=== PATIENT | female | born 1995 | race Caucasian/White ===

== ENCOUNTER 2022-06-04 14:34 | Emergency (ER) | payer OTHER, SELFPAY ==
--- OUTSIDE RECORDS SUMMARY | 2022-06-04 14:38 | XMS REPORT | Continuity of Care Document ---
:1995 Author Organization [facility] t Address [address] [place] [address] Dr. [address]. [address] [place] [address] Care Team Providers Name Role Phone ADELE PETERSON Primary Care Physician Unavailable ADELE PETERSON Attending Clinician Unavailable NAHUN BRAND Attending Clinician Unavailable DANNY STORY Attending Clinician Unavailable Danny Story MD Attending Clinician [facility] [phone] Rita Mao Attending Clinician Doctor Unassigned, [place] Attending Clinician Unavailable Jen Monterroso MD Attending Clinician KIRSTIE IRENE M.D. Attending Clinician Unavailable PETR ISLAS M.D. Attending Clinician Unavailable Payers Payer Name Policy Type Policy Number Effective Date Expiration Date [facility] [id number] 2018 CHOICE 00:00:00 [facility] [id number] 2021 00:00:00 Problems Condition Condition Condition Status Onset Resolution Last Treating Co mments Source Name Details Category Date Date Treatment Clinician Date Cyst of Cyst of Disease Active 2021-06 Univers Bartholin' Bartholin' 2-05 it y of s gland s gland 00:00: [address] Sebaceous Sebaceous Disease Active Uni vers cyst of cyst of 4-13 ity of labia labia 00:00: [address] Family Family Disease Active Univers history of history of 4-13 it y of breast breast 00:00: [place] cancer cancer 00 Medical Branch Tobacco Tobacco Disease Active Univers abuse abuse 9-09 ity of 00:00: [place] [facility] Appendicit Appendicit Disease Active U yunior is is 6-21 ity of 00:00: [place] [facility] Vaginal Vaginal Disease Active 2016-06 Univers yeast yeast 1-15 [place] infection [place] Rectal Rectal Disease Active 2016-06 Univers bleeding bleeding 1-15 ity of 00:00: [place] [facility] Contracept Contracept Disease Active 2016-06 U yunior cortes cortes 0-06 ity of management [place] [facility] [place] Obesity Obesity Disease Active 2016-06 Univers (BMI (BMI 0-06 ity of 30-39.9) 30-39.9) 00:00: [place] [facility] Vaginal Vaginal Disease Active 2016-06 Univers discharge discharge 0-06 ity of 00:00: [place] [facility] Migraine Migraine Disease Active 2016-06 Unive rs without without 0-06 ity of aura aura 00:00: [place] [facility] Avulsion Avulsion Problem Active [facility] fracture fracture Physic i ans Osteochond Osteochond Problem Active U T ral defect ral defect Ph ysici of [place] Sprain of Sprain of Problem Active [facility] anterior anterior Physic i talofibula talofibula an s r ligament r ligament of left of left ankle, ankle, initial initial encounter encounter Allergies, Adverse Reactions, Alerts Allergy Allergy Status Severity Reaction(s) Onset Inactive Treating Comm ents Source Name Type Date Date Clinician Iodine Propensi Active Other - See Uni vers ty to comments 6-21 ity of adverse 00:00: [place] reaction 00 Medical s Branch IODINE DRUG Active Other-Cmnt Univer s INGREDI 6-21 ity of 00:00: [place] 00 Medical Branch Social History Social Habit Start Date Stop Date Quantity Comments Source History SDOH University o f Alcohol Frequency [place] M ed[facility] History SDOH University o f Alcohol Std [place] Medical Drinks Branch History SDOH University o f Alcohol Binge [place] [facility] al [facility] Exposure to 2022-05-21 2022-05-31 Not sure University of SARS-CoV-2 00:00:00 14:07:00 [place] [facility] (event) Branch Tobacco use and 2022-05-30 2022-05-30 User of smokeless Un iversity of exposure 00:00:00 00:00:00 tobacco [facility] Alcohol intake 2022-05-30 2022-05-30 Current drinker Unive rsity of 00:00:00 00:00:00 of alcohol [facility] (finding) [place] Tobacco Comment 2022-05-30 2022-05-30 smokes when she Univ ersity of 00:00:00 00:00:00 drinks [facility] Alcohol Comment 2018-03-14 2018-03-14 every other Universi ty of 00:00:00 00:00:00 weekend [facility] Sex [birth year] At [birth year] Universit y of 00:00:00 00:00:00 [facility] Smoking Status Start Date Stop Date Source Never smoked tobacco [facility] Medications Ordered Filled Start Stop Current Ordering Indication Dosage Frequency Signature Comments Components Source Medication Medication Date Date Medication? Clinician (SIG) Name Name No known 2021-06 No No known Unive rs medications 2-05 medication it y of 08:05: s [address] sulfamethox 2021-06- Yes [id number] 1{tbl} Take 1 Univers azole-trime 2-05 12-13 tablet by it y of thoprim 00:00: 05:59 mouth in [place] (BACTRIM 00 :00 the Medical DS) 800-160 morning Branc h mg per and 1 tablet tablet in the evening. Do all this for 7 days. sulfamethox 2021-06- Yes [id number] 1{tbl} Take 1 Univers azole-trime 2-05 12-13 tablet by it y of thoprim 00:00: 05:59 mouth in [place] (BACTRIM 00 :00 the Medical DS) 800-160 morning Branc h mg per and 1 tablet tablet in the evening. Do all this for 7 days. sulfamethox 2021-06- Yes [id number] 1{tbl} Take 1 Univers azole-trime 2-05 12-13 tablet by it y of thoprim 00:00: 05:59 mouth in [place] (BACTRIM 00 :00 the Medical DS) 800-160 morning Branc h mg per and 1 tablet tablet in the evening. Do all this for 7 days. sulfamethox 2021-06- Yes [id number] 1{tbl} Take 1 Univers azole-trime 2- 12-13 tablet by it y of thoprim 00:00: 05:59 mouth in [place] (BACTRIM 00 :00 the Medical DS) 800-160 morning Branc h mg per and 1 tablet tablet in the evening. Do all this for 7 days. ondansetron 2021- No [id number] 4mg Take 1 Univers (ZOFRAN 4-23 04-13 tablet by ity of ODT) 4 mg 00:00: 00:00 mouth [place] disintegrat 00 :00 every 8 Medic al ing tablet (eight) Branch hours as needed for Nausea and Vomiting (N/V). ondansetron 2021- No [id number] 4mg Take 1 Univers (ZOFRAN 4-23 04-13 tablet by ity of ODT) 4 mg 00:00: 00:00 mouth [place] disintegrat 00 :00 every 8 Medic al ing tablet (eight) Branch hours as needed for Nausea and Vomiting (N/V). traMADoL 2021- No [id number] 50mg Take 1 Univer s (ULTRAM) 50 8- 04-13 tablet by it y of mg tablet 00:00: 00:00 mouth [place] 00 :00 every 6 Medical (six) Branch hours as needed for Pain (scale 7-10). Indication s: acute pain ciprofloxac 2021- No [id number] 500mg Take 1 Univers in HCl 500 8- 04-13 tablet by ity of mg tablet 00:00: 00:00 mouth [place] :[place] (two) Medical times Branch daily. traMADoL 2021- No [id number] 50mg Take 1 Univer s (ULTRAM) 50 8-29 04-13 tablet by it y of mg tablet 00:00: 00:00 mouth [place] 00 :00 every 6 Medical (six) Branch hours as needed for Pain (scale 7-10). Indication s: acute pain ciprofloxac 2021- No [id number] 500mg Take 1 Univers in HCl 500 8-29 04-13 tablet by ity of mg tablet 00:00: 00:00 mouth [place] :[place] (two) Medical times Branch daily. Immunizations Ordered Filled Immunization Date Status Comments [facility] e Immunization Name Name HPV 2016-08-01 Completed University of 00:00:00 [place] [facility] HPV 2016-08-01 Completed University of 00:00:00 [place] [facility] HPV 2016-08-01 Completed University of 00:00:00 [place] [facility] HPV 2016-08-01 Completed University of 00:00:00 [place] [facility] HPV 2016-08-01 Completed University of 00:00:00 [place] [facility] HPV 2016-08-01 Completed University of 00:00:00 [place] [facility] HPV 2016-08-01 Completed University of 00:00:00 [place] [facility] HPV 2016-03-31 Completed University of 00:00:00 [place] [facility] HPV 2016-03-31 Completed University of 00:00:00 [place] [facility] HPV 2016-03-31 Completed University of 00:00:00 [place] [facility] HPV 2016-03-31 Completed University of 00:00:00 [place] [facility] HPV 2016-03-31 Completed University of 00:00:00 [place] [facility] HPV 2016-03-31 Completed University of 00:00:00 [place] [facility] HPV 2016-03-31 Completed University of 00:00:00 [place] [facility] HPV 2016-01-30 Completed University of 00:00:00 [place] [facility] HPV 2016-01-30 Completed University of 00:00:00 [place] [facility] HPV 2016-01-30 Completed University of 00:00:00 [place] [facility] HPV 2016-01-30 Completed University of 00:00:00 [place] [facility] HPV 2016-01-30 Completed University of 00:00:00 [place] [facility] HPV 2016-01-30 Completed University of 00:00:00 [place] [facility] HPV 2016-01-30 Completed University of 00:00:00 [facility] Branch TDAP (ADACEL) 2015-12-30 Completed University of VACCINE 00:00:00 [facility] Branch TDAP (ADACEL) 2015-12-30 Completed University of VACCINE 00:00:00 [facility] Branch TDAP (ADACEL) 2015-12-30 Completed University of VACCINE 00:00:00 [facility] Branch TDAP (ADACEL) 2015-12-30 Completed University of VACCINE 00:00:00 [facility] Branch TDAP (ADACEL) 2015-12-30 Completed University of VACCINE 00:00:00 [facility] TDAP (ADACEL) 2015-12-30 Completed University of VACCINE 00:00:00 [facility] TDAP (ADACEL) 2015-12-30 Completed [facility] VACCINE 00:00:00 [facility] Vital Signs Vital Name Observation Time Observation Value Comments Source Systolic blood 2022-05-31 23:00:00 107 mm[Hg] Univer sity of pressure [facility] Diastolic blood 2022-05-31 23:00:00 71 mm[Hg] Unive rsity of pressure [facility] Heart rate 2022-05-31 23:00:00 76 /min Universi ty of [facility] Respiratory rate 2022-05-31 23:00:00 16 /min [facility] O[facility] saturation in 2022-05-31 23:00:00 100 /min [facility] Arterial blood by [facility] Pulse oximetry Branch Body temperature 2022-05-31 20:08:00 37.22 [facility] ersity of [facility] Body height 2022-05-31 20:08:00 175.3 cm Universi ty of [facility] Body weight 2022-05-31 20:08:00 104.327 kg Universi ty of [facility] BMI 2022-05-31 20:08:00 33.97 kg/m2 Universi ty of [facility] Systolic blood 2022-05-30 19:22:00 113 mm[Hg] Univer sity of pressure [facility] Diastolic blood 2022-05-30 19:22:00 76 mm[Hg] Unive rsity of [facility] Heart rate 2022-05-30 19:22:00 88 /min Universi ty of [facility] Body temperature 2022-05-30 19:22:00 37.06 Kavya Univ ersity of [facility] Respiratory rate 2022-05-30 19:22:00 18 /min Univ ersity of [facility] Body height 2022-05-30 19:22:00 175.3 cm Universi ty of [facility] Body weight 2022-05-30 19:22:00 104.554 kg Universi ty of [place] Medical [place] BMI 2022-05-30 19:22:00 34.04 kg/m2 Universi ty of [facility] Systolic blood 2022-05-30 13:21:00 118 mm[Hg] Univer sity of pressure [facility] Diastolic blood 2022-05-30 13:21:00 83 mm[Hg] Unive rsity of pressure [facility] Heart rate 2022-05-30 13:21:00 84 /min Universi ty of [facility] Body temperature 2022-05-30 13:21:00 36.61 Kavya Univ ersity of [facility] Respiratory rate 2022-05-30 13:21:00 18 /min Univ ersity of [facility] Body height 2022-05-30 13:21:00 175.3 cm Universi ty of [facility] Body weight 2022-05-30 13:21:00 105.235 kg Universi ty of [facility] BMI 2022-05-30 13:21:00 34.26 kg/m2 Universi ty of [facility] Oxygen saturation in 2022-05-30 13:21:00 99 /min [facility] Arterial blood by [facility] Pulse oximetry Branch Systolic blood 2021-10-06 19:20:00 122 mm[Hg] Univer sity of [facility] Diastolic blood 2021-10-06 19:20:00 72 mm[Hg] Unive rsity of [facility] Heart rate 2021-10-06 19:20:00 90 /min Universi ty of [facility] Body temperature 2021-10-06 19:20:00 36.39 [facility] Respiratory rate 2021-10-06 19:20:00 16 /min [facility] Body height 2021-10-06 19:20:00 175.3 cm Universi ty of [facility] Body weight 2021-10-06 19:20:00 105.716 kg Universi ty of [facility] BMI 2021-10-06 19:20:00 34.42 kg/m2 [facility] Procedures Procedure Date / Time Performing Clinician Source Performed POCT TEST 2022-05-31 21:59:00 Danny Story [facility] BASIC METABOLIC PANEL 2022-05-31 21:49:00 Danny Story [facility] (NA, K, CL, CO2, Medical Branch GLUCOSE, BUN, CREATININE, CA) CBC WITH DIFF 2022-05-31 21:49:00 Danny Story United o f [facility] CONSENT/REFUSAL FOR 2022-05-31 20:00:04 Doctor Unassigned, No Un iversity of [place] DIAGNOSIS AND TREATMENT Name Medical [place] NOTICE OF PRIVACY 2022-05-30 13:07:48 Doctor Unassigned, No [facility] [place] PRACTICES Name [facility] Branch CONSENT/REFUSAL FOR 2022-05-30 13:01:33 Doctor Unassigned, No Un iversity of [place] DIAGNOSIS AND TREATMENT Name [facility] GC & CHLAMYDIA 2021-10-06 21:29:00 Adele Peterson Univers ity [facility] AMPLIFIED ASSAY [facility] TRICHOMONAS AMPLIFIED 2021-10-06 21:29:00 Adele Peterson [facility] ASSAY [facility] PAP SMEAR-LIQUID 2021-10-06 21:29:00 Adele Peterson [facility] HIV 1/2 AG-AB WITH 2021-10-06 20:30:00 [facility] REFLEX [facility] GALV ONLY - [place] 2021-10-06 20:30:00 Adele Peterson Un [facility] IGG/IGM [facility] [U] XRAY FOOT MIN 3 VWS 2019-01-08 00:00:00 [facility]ys[facility] LEFT [id number] [U] XRAY ANKLE MIN 3 2019-01-03 00:00:00 [facility] VWS LEFT [id number] MR Ankle wo contrast 2019-01-03 00:00:00 [facility] [id number] Encounters Start End Encounter Admission Attending Care Care Encounter Source Date/Time Date/Time Type Type Clinicians Facility Department ID 2021-04-25 Emergency [facility] [id number] [facility] 2021-04-23 Emergency [facility] [id number] Univers 14:47:41 [facility] 2022-10-06 2022-10-06 Outpatient R NICHOLAS [facility] [id number] Univers 13:30:00 13:30:00 ADELE lyons o yesenia [facility] 2022-06-06 2022-06-06 Outpatient R CATHIE [facility] [id number] Univers 09:45:00 09:45:00 NAHUN ity [facility] 2022-05-31 2022-05-31 Emergency X PORSHA, [facility] ERT [id number] Univers 14:10:00 17:27:00 DANNY ity [facility] 2022-05-31 2022-05-31 Emergency Porsha, [facility] [id number] Univers 14:10:00 17:27:00 Danny ROBERTS [id number] i ty of [place] 4.2.7.2.686 [facility] [id number] [address] 2022-05-31 2022-05-31 [facility]phone [facility] [id number] Univers 00:00:00 00:00:00 Adele C SENIOR DIRECTOR [id number] ity of [facility] 4.2.7.2.686 Piero as MATERNAL [id number] [facility] ical & CHILD [address] [place] [address] 2022-05-30 2022-05-30 Office [facility] [id number] Univers 14:30:00 14:30:00 Visit Adele Enrique SENIOR DIRECTOR [id number] ity of [facility] 4.2.7.2.686 Piero as MATERNAL [id number] [facility] & [address] 2022-05-30 2022-05-30 Outpatient R NICHOLAS [facility] ERT [id number] Univers 14:30:00 14:05:58 ADELE flanagany o f [facility] 2022-05-30 2022-05-30 Emergency Anabela, K [facility] [id number] Univers 07:22:00 10:57:00 Samantha ROBERTS [id number] i ty of [place] 4.2.7.2.686 [facility] [id number] [address] 2021-10-06 2021-10-[address] [facility] [id number] Univers 14:00:00 15:19:01 Visit Adele C SENIOR DIRECTOR [id number] ity of [facility] 4.2.7.2.686 Piero as MATERNAL [id number] Med ical & CHILD [address] [place] [address] 2021-10-06 2021-10-06 Outpatient R NICHOLAS, [facility] [id number] Univers 14:00:00 15:19:01 ADELE patterson [facility] 2021-10-06 2021-10-06 Outpatient R [facility] [id number] Univers 14:00:00 14:00:00 ADELE flanagankaye stephan patterson [facility] 2021-10-06 2021-10-06 Orders Doctor ANIA [id number] Univers 00:00:00 00:00:00 Only Unassigned, ANNIE [id number] ity of [place] [facility] 4.2.7.2.686 Piero as [id number] [address] 2021-07-05 2021-07-05 Outpatient R [facility] [id number] Univers 15:00:00 15:00:00 ADELE flanagankaye stephan patterson [facility] 2020-10-16 2020-10-16 Emergency Rita Peñaloza [facility] [id number] Univers 16:28:00 18:37:00 Samantha F[place]ton [id number] i ty of [place] 4.2.7.2.686 [facility] [id number] [place] [id number] [place] 2020-10-16 2020-10-16 Orders Doctor JORGE [id number] Univers 00:00:00 00:00:00 Only Unassigned, ANNIE [id number] ity of [place] [facility] 4.2.7.2.686 Piero as [id number] [address] 2020-02-21 2020-02-22 Emergency [facility] [id number] Univers 22:18:00 01:45:00 Jen Roberts [id number] ity of [place] 4.2.7.2.686 [facility] [id number] [facility] 084 Branch 2020-02-21 2020-02-21 Orders Doctor ANIA [id number] Univers 00:00:00 00:00:00 Only Unassigned, ANNIE [id number] ity of [place] [facility] 4.2.7.2.686 Piero as [id number] [facility] 009 Branch 2019-01-16 2019-01-16 Appointmen TETO [facility] Orthopedics [id number] [place] 15:30:00 15:30:00 t; Diana THACKER [facility] yves IRENE M.D. [facility] Elidia THACKER 2019-01-08 2019-01-08 Appointmen STANISLAW ISLAS [facility] [id number] [place] 11:45:00 11:45:00 t; PETR ISLAS M.D. - Rah HUMPHREYS M.D. [facility] 2019-01-03 2019-01-03 Appointmen STANISLAW ISLAS [facility] [id number] [place] 13:15:00 13:15:00 t; PETR ISLAS M.D. - Tadanya HUMPHREYS M.D. [facility] Results Test Description Test Time Test Comments Results Result Comments Source CBC WITH DIFF 2022-05-31 22:12:28 Test Item Value Reference Range Interpretation Comme nts WBC (test code = 6690-2) See_Comment [A utomated message] The system which ge nerated this result transmit henrry reference range: 4.30 - 1 1.10 10*3/?L. The reference r bunny was not used to interpr et this result as normal/abnor mal. RBC (test code = 789-8) See_Comment [Au tomated message] The system which ge nerated this result transmit henrry reference range: 3.93 - 5 .25 10*6/?L. The reference r bunny was not used to interpr et this result as normal/abnor mal. HGB (test code = 718-7) 11.9 g/dL 11.6-15.0 HCT (test code = 4544-3) 35.9 % 35.7-45.2 MCV (test code = 787-2) 89.5 fL 80.6-95.5 MCH (test code = 785-6) 29.7 pg 25.9-32.8 MCHC (test code = 786-4) 33.1 g/dL 31.6-35.1 RDW-SD (test code = 32200-0) 38.0 fL 39.0-49.9 L RDW-CV (test code = 788-0) 11.8 % 12.0-15.5 L PLT (test code = 777-3) See_Comment [Au tomated message] The system which ge nerated this result transmit henrry reference range: 166 - 35 8 10*3/?L. The reference range was not used to interpret th is result as normal/abnormal . MPV (test code = 71571-3) 9.2 fL 9.5-12.9 L NRBC/100 WBC (test code = See_Comment [ Automated message] The [id number]) system which ge nerated this result transmit henrry reference range: 0.0 - 10 .0 /100 WBCs. The reference r bunny was not used to interpr et this result as normal/abnor mal. NRBC x10^3 (test code = See_Comment [Au tomated message] The [id number]) system which ge nerated this result transmit henrry reference range: 10*3/?L. The reference range was not u sed to interpret this result as normal/abnormal . GRAN MAT (NEUT) % (test code 70.0 % = 770-8) IMM GRAN % (test code = 0.30 % 6901550290) LYMPH % (test code = 736-9) 20.0 % MONO % (test code = 5905-5) 6.4 % EOS % (test code = 713-8) 2.4 % BASO % (test code = 706-2) 0.9 % GRAN MAT x10^3(ANC) (test 7.14 10*3/uL 1.88-7.09 H code = 3842296008) IMM GRAN x10^3 (test code = 0.03 10*3/uL 0.00-0.06 0836111802) LYMPH x10^3 (test code = 2.04 10*3/uL 1.32-3.29 731-0) MONO x10^3 (test code = 0.65 10*3/uL 0.33-0.92 742-7) EOS x10^3 (test code = 0.24 10*3/uL 0.03-0.39 711-2) BASO x10^3 (test code = 0.09 10*3/uL 0.01-0.07 H 704-7) Lab Interpretation (test Abnormal code = 34311-7) [facility] METABOLIC PANEL (NA, K, CL, CO2, GLUCOSE, BUN, CREATININE, CA)2022-05-31 22:11:11 Test Item Value Reference Range Interpretation Comments NA (test code = 136 mmol/L 135-145 9203006300) K (test code = 4.3 mmol/L 3.5-5.0 2313491294) CL (test code = 102 mmol/L 98-108 5764161933) CO2 TOTAL (test code 28 mmol/L 23-31 = 2944530866) AGAP (test code = 2-16 3591259502) BUN (test code = 12 mg/dL 7-23 0513783416) GLUCOSE (test code = 86 mg/dL 70-110 4376280911) CREATININE (test code 0.72 mg/dL 0.50-1.04 = 8218177811) CALCIUM (test code = 9.2 mg/dL 8.6-10.6 4548325754) eGFR (test code = mL/min/1.73m2 1047253930) SHELLY (test code = SHELLY) Association of Glomerular Filtration Rate (GFR) and Staging of Kidney Disease* + + +- +| GFR (mL/min/1.73 m2) ?| With Kidney Damage ?| ?Without Kidney Damage+ ------+ ----+ ------+| ?>90 ?| ?Stage one ?| ? Normal ?+ -+ + -+| ?60-89 ?| ?Stage two ?| ? Decreased GFR ? + + +- +| ?30-59 ?| ?Stage three ?| ? Stage three ? + + +- +| ?15-29 ?| ?Stage four ? | ? Stage four ?+ -+ + -+| ?<15 (or dialysis) ? ?| ?Stage five ? | ? Stage five ?+ -+ + -+ *Each stage assumes the associated GFR level has been in effect for at least three months. ?Stages 1 to 5, with or without kidney disease, indicate chronic kidney disease. Notes: Determination of stages one and two (with eGFR >59mL/min/1.73 m2) requires estimation of kidney damage for at least three months as defined by structural or functional abnormalities of the kidney, manifested by either:Pathological abnormalities or Markers of kidney damage (including abnormalities in the composition of the blood or urine or abnormalities in imaging tests). [facility] [id number] 21:59:00 Test Item Value Reference Range Interpretation Comments POCT PREG (test code = 1605) NEGATIVE On board controls acceptable with PRESENT C Line (test code = 3574) POCT PREG LOT # (test code = 3575) [id number] POCT PREG TEST DATE (test 2023-09-24 code = 3576) Lab Interpretation (test code = Normal 87206-5) [facility] ONLY - [place] [id number] 16:38:12 Test Item Value Reference Range Interpretation Comments Syphilis IgG/IgM (test Non-reactive Non-reactive code = 71434-2) SHELLY (test code = SHELLY) Non-reactive - No serologic evidence of T. pallidum infection. Cannot exclude incubating or early syphilis. Submit a second specimen in 2-4 weeks if syphilis is clinically suspected. Equivocal - Further testing to follow. Reactive - Further testing to follow. Lab Interpretation (test Normal code = 46966-5) [facility] ONLY - [place] [id number] 16:38:12 Test Item Value Reference Range Interpretation Comments Syphilis IgG/IgM (test Non-reactive Non-reactive code = 07062-5) SHELLY (test code = SHELLY) Non-reactive - No serologic evidence of T. pallidum infection. Cannot exclude incubating or early syphilis. Submit a second specimen in 2-4 weeks if syphilis is clinically suspected. Equivocal - Further testing to follow. Reactive - Further testing to follow. Lab Interpretation (test Normal code = 20065-0) [facility] 06/27 AG-AB WITH [id number] 03:55:57 Test Item Value Reference Range Interpretation Comments HIV Negative Negative Semi-quantitative (test code = 12770-2) SHELLY (test code = Non-reactive for HIV-1 SHELLY) antigen and HIV-1/HIV-2 antibodies. ?No laboratory evidence of HIV infection. ?Repeat in 2-4 weeks if acute HIV infection is suspected. [facility] [id number] 03:55:57 Test Item Value Reference Range Interpretation Comments HIV Negative Negative Semi-quantitative (test code = 06494-4) SHELLY (test code = Non-reactive for HIV-1 SHELLY) antigen and HIV-1/HIV-2 antibodies. ?No laboratory evidence of HIV infection. ?Repeat in 2-4 weeks if acute HIV infection is suspected. [facility][U] XRAY FOOT MIN 3 VWS LEFT [id number] 15:35:00Images acquired, not reported on this accession number.[facility][U] XRAY ANKLE MIN 3 VWS LEFT [id number] 14:39:00Images acquired, not reported on this accession number.[facility]"
[2022-06-04] MEDS ORDERED: HYDROMORPHONE HCL 1 MG/ML INJ ONE (16:20)
[2022-06-04] MEDS ORDERED: LIDOCAINE HCL JELLY 2% 6 ML SYRINGE TOP ONE (16:21)
[2022-06-04 16:35] LABS: Urine Blood 3+ (Negative); Urine Glucose Negative (Negative); Urine Protein Negative (Negative); Urine Specific Gravity 1.015 (1.005-1.030); Urine pH 6.5 (5.0-7.0)
[2022-06-04] MEDS ORDERED: LIDOCAINE 1% MPF 5 ML VIAL ONE (16:44)
[2022-06-04] MEDS ORDERED: DIAZEPAM 5 MG TABLET ONE (17:20)
--- NOTE | 2022-06-04 18:28 | EDPHYS ---
Physician Documentation [facility] Name: Quentin Mendez Age: 26 yrs Sex: Female : 1995 Arrival Date: 06/04/2022 Time: 14:38 Bed 23 Private MD: ED Physician Tyrone Mendoza HPI: 06/04 17:20 This 26 yrs old Female presents to ER via Ambulatory with complaints of Vaginal snw Bleeding. 17:20 The patient presents with perineal pain, abscess. Onset: The symptoms/episode snw began/occurred 1 week(s) ago. Modifying factors: The symptoms are alleviated by nothing. Associated signs and symptoms: Pertinent positives: significant pain. Severity of symptoms: At their worst the symptoms were moderate, severe. 2017. The patient has been recently seen by a physician: the patient's primary care provider, pt was seen by [facility], given pain medications, abx, then pt saw PCP and was given more pain medications via IM injection. . 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 - Social history:: Smoking status: Patient denies any tobacco usage or history of. ROS: 17:15 Constitutional: Negative for fever, chills, and weight loss, Eyes: Negative for injury, snw pain, redness, and discharge, ENT: Negative for injury, pain, and discharge, Neck: Negative for injury, pain, and swelling, Cardiovascular: Negative for chest pain, palpitations, and edema, Respiratory: Negative for shortness of breath, cough, wheezing, and pleuritic chest pain, Abdomen/GI: Negative for abdominal pain, nausea, vomiting, diarrhea, and constipation, Back: Negative for injury and pain, : Negative for injury, bleeding, discharge, and swelling, MS/Extremity: Negative for injury and deformity, Neuro: Negative for headache, weakness, numbness, tingling, and seizure, Psych: Negative for depression, anxiety, suicide ideation, homicidal ideation, and hallucinations. 17:15 Skin: Positive for labial abscess. Exam: 16:44 Constitutional: This is a well developed, well nourished patient who is awake, alert, snw and in no acute distress. Head/Face: Normocephalic, atraumatic. Eyes: Pupils equal round and reactive to light, extra-ocular motions intact. Lids and lashes normal. Conjunctiva and sclera are non-icteric and not injected. Cornea within normal limits. Periorbital areas with no swelling, redness, or edema. ENT: Nares patent. No nasal discharge, no septal abnormalities noted. Tympanic membranes are normal and external auditory canals are clear. Oropharynx with no redness, swelling, or masses, exudates, or evidence of obstruction, uvula midline. Mucous membranes moist. Neck: Trachea midline, no thyromegaly or masses palpated, and no cervical lymphadenopathy. Supple, full range of motion without nuchal rigidity, or vertebral point tenderness. No Meningismus. Chest/axilla: Normal chest wall appearance and motion. Nontender with no deformity. No lesions are appreciated. Cardiovascular: Regular rate and rhythm with a normal S1 and S2. No gallops, murmurs, or rubs. Normal PMI, no JVD. No pulse deficits. Respiratory: Lungs have equal breath sounds bilaterally, clear to auscultation and percussion. No rales, rhonchi or wheezes noted. No increased work of breathing, no retractions or nasal flaring. Abdomen/GI: Soft, non-tender, with normal bowel sounds. No distension or tympany. No guarding or rebound. No evidence of tenderness throughout. Back: No spinal tenderness. No costovertebral tenderness. Full range of motion. MS/ Extremity: Pulses equal, no cyanosis. Neurovascular intact. Full, normal range of motion. Neuro: Awake and alert, GCS 15, oriented to person, place, time, and situation. Cranial nerves II-XII grossly intact. Motor strength 5/5 in all extremities. Sensory grossly intact. Cerebellar exam normal. Normal gait. 16:44 Skin: abscess, that is large, approximately 6 cm(s), of the right labia minora, with drainage, that is bloody. Vital Signs: 15:25 BP 127 / 81; Pulse 99; Resp 16; Temp 98.4; Pulse Ox 100% on R/A; Weight 96.16 kg; iw Height 5 ft. 9 in. (175.26 cm); 16:00 BP 121 / 78; Pulse 95; Pulse Ox 99% on R/A; ko1 17:00 BP 142 / 82; Pulse 110; Resp 18; Pulse Ox 98% on R/A; ko1 18:30 BP 108 / 72; Pulse 98; ko1 15:25 Body Mass Index 31.31 (96.16 kg, 175.26 cm) iw Procedures: 17:12 I \T\ D: Incision and drainage was performed for an abscess of the right right labia snw minora Anesthetized with lido gel to area x 20min, injected with lido x 5ml, cruciate incision placed, pt unable to tolerate pressure but drained of blood and some particulate matter, pt able to relax knees a little more, lido gel placed for increased comfort. Incised with #10 blade. Drained moderate amount serosanguinous fluid. the patient tolerated the procedure very tender, pt uncomfortable despite medications. MDM: 15:50 Patient medically screened. snw 18:30 Data reviewed: vital signs, nurses notes. Data interpreted: Pulse oximetry: on room air snw is 98 %. Interpretation: normal. Counseling: I had a detailed discussion with the patient and/or guardian regarding: the historical points, exam findings, and any diagnostic results supporting the discharge/admit diagnosis, the need for outpatient follow up, for definitive care, to return to the emergency department if symptoms worsen or persist or if there are any questions or concerns that arise at home. Response to treatment: the patient's symptoms have markedly improved after treatment. Special discussion: Based on the history and exam findings, there is no indication for further emergent testing or inpatient evaluation. I discussed with the patient/guardian the need to see the OB Gyne specialist for further evaluation of the symptoms. 06/04 16:35 Order name: Urine Dipstick-Ancillary; Complete Time: 16:37 EDMS Administered Medications: 16:26 Drug: Dilaudid (HYDROmorphone) 1 mg Route: IM; Site: left deltoid; ko1 17:07 Drug: Lidocaine Gel 2 % 1 ea Volume: 15 ml; Route: Mucous Membrane; ko1 17:07 Drug: Lidocaine (1 %) 5 mg Route: Infiltration; ko1 17:20 Not Given (Physician Discretion): Valium (diazepam) 10 mg PO once snw 17:21 Drug: Valium (diazepam) 5 mg Route: PO; ko1 Disposition: 19:35 Co-signature as Attending Physician, Tyrone Mendoza MD I agree with the assessment and rt plan of care. Disposition Summary: 06/04/22 18:27 Discharge Ordered Location: Home snw Condition: Stable snw Diagnosis - Labial abscess snw Followup: snw - With: Emergency Department - When: As needed - Reason: Worsening of condition Followup: snw - With: Private Physician - When: 2 - 3 days - Reason: Recheck today's complaints, Continuance of care, Re-evaluation by your physician Discharge Instructions: - Discharge Summary Sheet snw - Skin Abscess snw - How to Take a Sitz Bath snw Forms: - Medication Reconciliation Form snw - Thank You Letter snw - Antibiotic Education snw - Prescription Opioid Use snw Prescriptions: - Doxycycline Hyclate 100 mg Oral Tablet - take 1 tablet by ORAL route every 12 hours; 20 tablet; Refills: 0, Product snw Selection Permitted - Tylenol-Codeine #3 300 mg-30 mg Oral - take 1 tablet by ORAL route 1-3 times daily; 12 tablet; Refills: 0, Product snw Selection Permitted Signatures: Belem Tovar, C.O.D. BILLER-C C.O.D. BILLER-Csnw Eve Figueroa, RN RN iw Deborah Jacobson RN RN ko1 Tyrone Mendoza MD MD rt
--- NOTE | 2022-06-04 18:28 | ER ---
Nurse's Notes [facility] Name: Quentin Mendez Age: 26 yrs Sex: Female : 1995 Arrival Date: 06/04/2022 Time: 14:38 Bed 23 Private MD: Diagnosis: Labial abscess Presentation: 06/04 15:25 Chief complaint: Patient states: I went to [facility] and my gyno this past week for vaginal iw pain and cyst on her labia, was given bactrim by gyno, went back to ER due to pain, pt states they said it was not a Bartholin's cyst and that it was too hard to drain. It ruptured yesterday and now there's a lot of blood and she is changing pads every 30 minutes, is not bleeding from the vagina but rather from the cyst. Coronavirus screen: At this time, the client does not indicate any symptoms associated with coronavirus-19. Ebola Screen: Patient negative for fever greater than or equal to 101.5 degrees Fahrenheit, and additional compatible Ebola Virus Disease symptoms Patient denies exposure to infectious person. Patient denies travel to an Ebola-affected area in the 21 days before illness onset. No symptoms or risks identified at this time. Initial Sepsis Screen: Does the patient meet any 2 criteria? No. Patient's initial sepsis screen is negative. Does the patient have a suspected source of infection? No. Patient's initial sepsis screen is negative. Risk Assessment: Do you want to hurt yourself or someone else?. Onset of symptoms was May 28, 2022. 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 - Social history:: Smoking status: Patient denies any tobacco usage or history of. Screenin:00 Abuse screen: Denies threats or abuse. Denies injuries from another. Nutritional ko1 screening: No deficits noted. Tuberculosis screening: No symptoms or risk factors identified. Fall Risk None identified. Assessment: 16:00 General: Appears in no apparent distress. uncomfortable, Behavior is calm, cooperative, ko1 appropriate for age. Pain:. 16:00 Neuro: No deficits noted. Cardiovascular: No deficits noted. Respiratory: No deficits ko1 noted. GI: No deficits noted. Derm: cysts to labia. Musculoskeletal: No deficits noted. 16:39 : Urine is clear, Reports vaginal bleeding that is not vaginal but labial. EENT: No ko1 deficits noted. Vital Signs: 15:25 BP 127 / 81; Pulse 99; Resp 16; Temp 98.4; Pulse Ox 100% on R/A; Weight 96.16 kg; iw Height 5 ft. 9 in. (175.26 cm); 16:00 BP 121 / 78; Pulse 95; Pulse Ox 99% on R/A; ko1 17:00 BP 142 / 82; Pulse 110; Resp 18; Pulse Ox 98% on R/A; ko1 18:30 BP 108 / 72; Pulse 98; ko1 15:25 Body Mass Index 31.31 (96.16 kg, 175.26 cm) iw ED Course: 14:38 Patient arrived in ED. as 14:42 Belem Tovar FNP-C is PHCP. snw 14:42 Tyrone Mendoza MD is Attending Physician. snw 15:30 Triage completed. iw 15:31 Arm band placed on. iw 15:58 Deborah Jacobson, RN is Primary Nurse. ko1 16:00 Patient has correct armband on for positive identification. Placed in gown. Bed in low ko1 position. Call light in reach. Side rails up X 1. Adult w/ patient. Pulse ox on. NIBP on. 17:15 Assist provider with I \T\ D: of an abscess on labia Set up I\T\D tray. Performed by Belem ko 1 Guy PIERCE Patient tolerated fair. Patient did not have IV access during this emergency room visit. Administered Medications: 16:26 Drug: Dilaudid (HYDROmorphone) 1 mg Route: IM; Site: left deltoid; ko1 17:07 Drug: Lidocaine Gel 2 % 1 ea Volume: 15 ml; Route: Mucous Membrane; ko1 17:07 Drug: Lidocaine (1 %) 5 mg Route: Infiltration; ko1 17:20 Not Given (Physician Discretion): Valium (diazepam) 10 mg PO once snw 17:21 Drug: Valium (diazepam) 5 mg Route: PO; ko1 Medication: 16:00 VIS not applicable for this client. ko1 Outcome: 17:15 Discharged to home ambulatory, with family. ko1 17:15 Condition: stable 17:15 Discharge instructions given to patient, family, Instructed on discharge instructions, follow up and referral plans. medication usage, Demonstrated understanding of instructions, follow-up care, medications, wound care, Prescriptions given X 2. 18:27 Discharge ordered by . yovani 18:47 Patient left the ED. ko1 Signatures: Belem Tovar, LEI SELLER-C LEI SELLER-Tamiko Lang as Eve Figueroa, RN RN iw Deborah Jacobson RN RN ko1
[2022-06-04 22:58] VITALS: TEMP 98.4
[2022-06-04 23:00] VITALS: O2SAT 98
[2022-06-04 23:01] VITALS: BP 108/72
== END 2022-06-04 18:47 | disposition home or self-care (01) ==
LOC: ER 14:34
PROC: 0U9MXZZ Drainage of Vulva, External Approach (ICD-10-PCS; principal; 2022-06-04)
DX: N76.4 Abscess of vulva (principal)
CPT/HCPCS: 81003; 96372; 99284; J1170; J2001

== ENCOUNTER 2025-04-24 17:25 | Emergency (ER) | payer SELFPAY ==
[2025-04-24] MEDS ORDERED: ONDANSETRON 4 MG (ODT) TAB ONE (18:02)
[2025-04-24] MEDS ORDERED: BENZONATATE 100 MG CAP PO ONE (18:03)
--- NOTE | 2025-04-24 18:20 | RAD REPORT ---
EXAMINATION: TWO VIEW CHEST XR CLINICAL INDICATION: COUGH TECHNIQUE: 2 views of the chest was performed. COMPARISON: No prior exam. FINDINGS: The lungs are well inflated and clear. The heart is normal in size. No displaced fractures evident. IMPRESSION: No acute or significant abnormalities.
[2025-04-24 18:32] LABS: Influenza A Ag Negative; Influenza B Ag Negative; SARS-CoV-2 Antigen Rapid Res Negative (Negative)
--- NOTE | 2025-04-24 18:54 | ER ---
Nurse's Notes [facility] Name: Quentin Mendez Age: 29 yrs Sex: Female : 1995 Arrival Date: 04/24/2025 Time: 17:25 Bed 14 Private MD: Diagnosis: Cough;Otitis media, unspecified, bilateral;Acute pharyngitis, unspecified Presentation: 04/24 17:43 Chief complaint: Patient states: being sick for the past 3 days, headache, sore throat rg5 \T\ body pain. Coronavirus screen: Client denies travel out of the [place] in the last 14 days. Ebola Screen: Patient negative for fever greater than or equal to 101.5 degrees Fahrenheit, and additional compatible Ebola Virus Disease symptoms Patient denies exposure to infectious person. Patient denies travel to an Ebola-affected area in the 21 days before illness onset. Initial Sepsis Screen: Does the patient meet any 2 criteria? No. Patient's initial sepsis screen is negative. Does the patient have a suspected source of infection? No. Patient's initial sepsis screen is negative. Risk Assessment: Do you want to hurt yourself or someone else? Patient reports no desire to harm self or others. Onset of symptoms was April 24, 2025. 17:43 Method Of Arrival: Ambulatory rg5 17:43 Acuity: BRITTANIE 4 rg5 Triage Assessment: 17:46 General: Appears in no apparent distress. Behavior is calm, cooperative, appropriate rg5 for age. General: Reports feeling ill for 2-3 days. Pain: Denies pain. Complains of pain in throat \T\ body Quality of pain is described as aching. EENT: No signs and/or symptoms were reported regarding the EENT system. Neuro: Level of Consciousness is awake, alert, obeys commands. Cardiovascular: Patient's skin is warm and dry. Respiratory: Reports cough that is productive, Airway is patent Trachea midline Respiratory effort is even, unlabored. GI: Abdomen is round non-distended. : No signs and/or symptoms were reported regarding the genitourinary system. Derm: Skin is intact, Skin is dry, Skin is normal. Musculoskeletal: Circulation, motion, and sensation intact. Range of motion: intact in all extremities. 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 - Infectious Disease History:: Denies. - Social history:: Smoking status: Reported history of juuling and/or vaping. Screenin:49 [facility] ED Fall Risk Assessment (Adult) History of falling in the last 3 months, rg5 including since admission No falls in past 3 months (0 pts) Confusion or Disorientation No (0 pts) Intoxicated or Sedated No (0 pts) Impaired Gait No (0 pts) Mobility Assist Device Used No (0 pt) Altered Elimination No (0 pt) Score/Fall Risk Level 0 - 2 = Low Risk Oriented to surroundings, Maintained a safe environment. Abuse screen: Denies threats or abuse. Nutritional screening: No deficits noted. Tuberculosis screening: No symptoms or risk factors identified. Assessment: 17:49 Reassessment: No changes from previously documented assessment. General: Appears in no rg5 apparent distress. 18:51 Reassessment: Patient and/or family updated on plan of care and expected duration. Pain rg5 level reassessed. Patient is alert, oriented x 3, equal unlabored respirations, skin warm/dry/pink. Patient states symptoms have improved. Vital Signs: 17:43 BP 123 / 70; Pulse 85; Resp 18; Temp 98.8; Pulse Ox 97% ; Weight 112.94 kg; Height 5 rg5 ft. 9 in. ; Pain 5/10; 18:10 BP 115 / 77; Pulse 81; Resp 18; Pulse Ox 97% ; rg5 17:43 Body Mass Index 36.77 (112.94 kg, 175.26 cm) rg5 17:43 Pain Scale: Adult rg5 ED Course: 17:29 Patient arrived in ED. al6 17:29 Rl Irby PA-C is PHCP. cp 17:29 Neftaly Vogel MD is Attending Physician. cp 17:34 Camacho Guerra, NILO is Primary Nurse. rg5 17:34 Arm band placed on Patient placed in an exam room, on a stretcher. ll1 17:46 Triage completed. rg5 17:49 No provider procedures requiring assistance completed. rg5 18:15 XRAY Chest Pa And Lat (2 Views) In Process Unspecified. EDMS 19:06 Patient did not have IV access during this emergency room visit. rg5 Administered Medications: 18:10 Drug: Tessalon Perle PO 200 mg PO once Route: PO; rg5 18:58 Follow up: Response: No adverse reaction rg5 18:10 Drug: Ondansetron PO 4 mg PO once Route: PO; rg5 18:58 Follow up: Response: No adverse reaction rg5 Medication: 17:49 VIS not applicable for this client. rg5 Outcome: 18:53 Discharge ordered by . pedro 19:06 Discharged to home ambulatory, rg5 19:06 Condition: stable 19:06 Discharge instructions given to patient, Instructed on discharge instructions, Demonstrated understanding of instructions, Prescriptions given X 4, 19:06 Patient left the ED. rg5 Signatures: Dispatcher [employer] EDNJ Rl Irby PA-C PA-C cp Lewis, Lynsay RN RN ll1 Camacho Guerra RN RN rg5 Katalina Monahan6
--- NOTE | 2025-04-24 18:54 | EDPHYS ---
Physician Documentation [facility] Name: Quentin Mendez Age: 29 yrs Sex: Female : 1995 Arrival Date: 04/24/2025 Time: 17:25 Bed 14 Private MD: ED Physician Neftaly Vogel HPI: 04/24 17:55 This 29 yrs old Female presents to ER via Ambulatory with complaints of Pain All Over, cp Flu Symptoms. 17:55 The patient or guardian reports cough, with productive sputum, flu symptoms, body cp aches, sore throat, congestion, nausea and intermittent vomiting. 17:55 Onset: The symptoms/episode began/occurred 3 day(s) ago. cp 17:55 Associated signs and symptoms: Pertinent negatives: diarrhea, active vomiting. Severity cp of symptoms: in the emergency department the symptoms are unchanged. 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 - Infectious Disease History:: Denies. - Social history:: Smoking status: Reported history of juuling and/or vaping. ROS: 18:00 Constitutional: Negative for fever, cp 18:00 Eyes: Negative for injury, pain, redness, and discharge, cp 18:00 ENT: Positive for ear pain, sore throat, 18:00 Cardiovascular: Negative for chest pain, palpitations, 18:00 Respiratory: Positive for cough, "sounds productive", Negative for wheezing, 18:00 Abdomen/GI: Positive for nausea, Negative for abdominal pain, diarrhea, active vomiting, 18:00 Skin: Negative for rash, 18:00 Neuro: Negative for altered mental status, 18:00 All other systems are negative, Exam: 18:05 Constitutional: The patient appears in no acute distress, alert, awake, non-toxic, well cp developed, well nourished, no signs respiratory distress 18:05 Head/Face: Normocephalic, atraumatic. cp 18:05 Eyes: Periorbital structures: appear normal, Conjunctiva: normal, no exudate, no injection, Sclera: no appreciated abnormality, Lids and lashes: appear normal, bilaterally, 18:05 ENT: External ear(s): are unremarkable, Ear canal(s): are normal, clear, TM's: bulging, is not appreciated, bilaterally, erythema, that is moderate, bilaterally, Nose: is normal, Mouth: Lips: moist, Oral mucosa: moist, Posterior pharynx: Airway: no evidence of obstruction, patent, Tonsils: with erythema, no exudate, erythema, that is moderate, exudate, is not appreciated, Voice: is normal, 18:05 Neck: ROM/movement: Meningeal signs: are not present, 18:05 Chest/axilla: Inspection: normal, 18:05 Cardiovascular: Rate: normal, 18:05 Respiratory: the patient does not display signs of respiratory distress, Respirations: normal, no use of accessory muscles, no retractions, labored breathing, is not present, Breath sounds: decreased breath sounds, are not appreciated, stridor, is not appreciated, + upper airway congestion. wheezing: is not appreciated, 18:05 Abdomen/GI: Inspection: abdomen appears normal, Palpation: abdomen is soft and non-tender, in all quadrants, 18:05 Back: CVA tenderness, is absent, 18:05 Skin: no rash present. Vital Signs: 17:43 BP 123 / 70; Pulse 85; Resp 18; Temp 98.8; Pulse Ox 97% ; Weight 112.94 kg; Height 5 rg5 ft. 9 in. ; Pain 5/10; 18:10 BP 115 / 77; Pulse 81; Resp 18; Pulse Ox 97% ; rg5 17:43 Body Mass Index 36.77 (112.94 kg, 175.26 cm) rg5 17:43 Pain Scale: Adult rg5 MDM: 17:31 Medical Screening Exam initiated cp 18:00 Differential diagnosis: bronchitis, flu, pneumonia, strep throat, tonsillitis. 18:53 Data reviewed: vital signs, nurses notes, lab test result(s), and as a result, I will cp discharge patient. 18:53 I considered the following discharge prescriptions or medication management in the emergency department Medications were administered in the Emergency Department. See MAR. 18:53 Counseling: I had a detailed discussion with the patient and/or guardian regarding the historical points, exam findings, and any diagnostic results supporting the discharge/admit diagnosis, lab results, to return to the emergency department if symptoms worsen or persist or if there are any questions or concerns that arise at home. Response to treatment: the patient's symptoms have mildly improved after treatment, and as a result, I will discharge patient. 04/24 17:51 Order name: COVID-19 Ag + Flu A+B Ag cp 04/24 17:51 Order name: Group A Streptococcus Rapid cp 04/24 18:24 Order name: Throat Culture EDMS 04/24 17:51 Order name: XRAY Chest Pa And Lat (2 Views) cp Administered Medications: 18:10 Drug: Tessalon Perle PO 200 mg PO once Route: PO; rg5 18:58 Follow up: Response: No adverse reaction rg5 18:10 Drug: Ondansetron PO 4 mg PO once Route: PO; rg5 18:58 Follow up: Response: No adverse reaction rg5 Disposition Summary: 04/24/25 18:53 Discharge Ordered Notes: Location: Home cp Problem: new cp Symptoms: have improved cp Condition: Stable cp Diagnosis - Cough cp - Otitis media, unspecified, bilateral cp - Acute pharyngitis, unspecified cp Followup: cp - With: Private Physician - When: 2 - 3 days - Reason: Worsening of condition Discharge Instructions: - Discharge Summary Sheet cp - Otitis Media, Adult cp - Pharyngitis cp - Sore Throat cp - Cough, Adult cp Forms: - Medication Reconciliation Form cp - Antibiotic Education cp - Prescription Opioid Use cp - Patient Portal Instructions cp - Leadership Thank You Letter cp - Work release form rg5 Prescriptions: - Bromfed DM 2-30-10 mg/5 mL Oral syrup - administer 10 milliliter ORAL route every 8 hours as needed for cold symptoms; cp 240 milliliter; Refills: 0, Product Selection Permitted - albuterol sulfate 90 mcg/actuation Inhalation HFA Aerosol Inhaler - inhale 1 puff INHALATION route every 4-6 hours; 1 unit; Refills: 0, Product cp Selection Permitted - Augmentin 875-125 mg Oral Tablet - take 1 tablet ORAL route every 12 hours for 10 days; 20 tablet; Refills: 0, cp Product Selection Permitted - Zofran 4 mg Oral Tablet - take 1 tablet ORAL route every 12 hours As needed; 20 tablet; Refills: 0, cp Product Selection Permitted Signatures: Dispatcher [employer] EDMO Rl Irby PA-C PA-C Jazzy Jason RN RN ll1 Camacho Guerra, RN RN rg5 Corrections: (The following items were deleted from the chart) 17:52 17:52 Chest Pa And Lat (2 Views)+[email or web address] ordered. EDMS EDMS
[2025-04-24 19:14] VITALS: TEMP 98.8; O2SAT 97
[2025-04-24 19:15] VITALS: BP 115/77
== END 2025-04-24 19:06 | disposition home or self-care (01) ==
LOC: ER 17:25
DX: R05.9 Cough, unspecified (principal); H66.93 Otitis media, unspecified, bilateral; J02.9 Acute pharyngitis, unspecified; Z11.52 Encounter for screening for COVID-19
CPT/HCPCS: 36415; 71046; 87070; 87428; 99283; Q0162